=== PATIENT | male | born 1990 | race Caucasian/White ===

== ENCOUNTER 2017-12-10 14:25 | Emergency (ER) | payer OTHER ==
[2017-12-10 15:32] VITALS: BP 137/77
--- NOTE | 2017-12-10 20:35 | UC ---
Complaint Male HPI - HPI Summary HPI Summary: Pt. is a 27 y.o male who presents to the complaining of genital itching x several days. He denies dysuria or penile discharge. Pt. denies concern for STIs. He denies testicle pain or swelling. Symptoms are mild in severity. No current modifying factors. - History of Current Complaint Chief Complaint: UCGU Stated Complaint: PERSONAL Time Seen by Provider: 12/10/17 15:24 Hx Obtained From: Patient Pain Intensity: 2 Pain Scale Used: 0-10 Numeric - Allergies/Home Medications Allergies/Adverse Reactions: Allergies Allergy/AdvReac Type Severity Reaction Status Date / Time No Known Allergies Allergy Verified 12/10/17 15:32 Home Medications: Home Medications Losartan TAB* [Cozaar TAB*] 25 mg PO DAILY 12/10/17 [History Confirmed 12/10/17] PMH/Surg Hx/FS Hx/Imm Hx Previously Healthy: Yes - Social History Lives: With Family Alcohol Use: Occasionally Substance Use Type: None Smoking Status (MU): Never Smoked Tobacco Review of Systems Constitutional: Negative Genitourinary: Other - Scrotal itching Is Patient Immunocompromised?: No All Other Systems Reviewed And Are Negative: Yes Physical Exam Triage Information Reviewed: Yes Appearance: Well-Appearing - Pt. sitting on exam table in NAD. Vital Signs: Initial Vital Signs Temp 99.4 F 12/10/17 15:21 Pulse 88 12/10/17 15:21 Resp 16 12/10/17 15:21 BP 137/77 12/10/17 15:21 Pulse Ox 100 12/10/17 15:21 Vital Signs Reviewed: Yes Neck exam: Normal Male Genital Exam: Positive: Other - Very faint overlying erythema and irritation to the scrotum.. Negative: Epididymal Tenderness, Lesions, Scrotum Tenderness (R), Scrotum Tenderness (L), Urethral Discharge Musculoskeletal Exam: Normal Neurological Exam: Normal Psychological Exam: Normal Skin Exam: Normal Complaint Male Course/Dx - Course Course Of Treatment: Pt. presenting with testicular itching. Exam is realatively unremarkable. Will treat for tinea cruris. Pt. offered and declined STI testing today. Clotrimazole cream rx. Advised to keep genitals clean and dry. Close f.u with PCP and return to or go to ER if sxs change or worsen. - Differential Dx/Diagnosis Differential Diagnosis/HQI/PQRI: Epididymitis, Phimosis, Priaprism, Urinary Tract Infection Provider Diagnoses: Tinea cruris Discharge - Sign-Out/Discharge Documenting (check all that apply): Discharge/Admit/Transfer - Discharge Plan Condition: Good Disposition: HOME Prescriptions: Clotrimazole 1% CREAM* [Clotrimazole 1%*] 1 applic TOPICAL BID #120 tube Patient Education Materials: Delroy Anton (ED) Referrals: [facility] [place] [facility] [Outside] No Primary Care Phys,NOPCP [Primary Care Provider] - Additional Instructions: Call the physician referral number to establish a PCP Use cream as directed Keep genital region clean and dry Return to UC or go to ER for testicle pain, swelling, discharge, fever or if concerned - Billing Disposition and Condition Condition: GOOD Disposition: HOME
== END 2017-12-10 15:57 | disposition home or self-care (01) ==
LOC: UCCORT 14:25
DX: B35.6 Tinea cruris (principal)
CPT/HCPCS: 99202; G0463

== ENCOUNTER 2017-12-30 19:51 | Emergency (ER) | payer OTHER ==
[2017-12-30 20:56] VITALS: BP 122/67
--- NOTE | 2017-12-30 21:27 | UC ---
Complaint Male HPI - HPI Summary HPI Summary: 27 y/o male presents to the urgent care for a re-check in testicular rash. Pt reports he was seen here on 12/10/2017 at the clinic about 2 weeks ago and Dx w/ candidiasis and Rx Chlotrimazole cream. Pt states rash was getting better until he went [place] a water park and now itchiness and redness returned. Pt denies fever, penile discharge, testicular pain, Hx of STD's, SOB, chest pain, abdominal pain, N/V/D - History of Current Complaint Chief Complaint: UCRash Stated Complaint: RE-CHECK PERSONAL Time Seen by Provider: 12/30/17 21:20 Hx Obtained From: Patient Onset/Duration: Gradual Onset, Lasting Weeks - 3 weeks, Still Present, Worse Since - past week Timing: Constant Severity Initially: Mild Severity Currently: Mild Pain Intensity: 3 Pain Scale Used: 0-10 Numeric Location: Testicle - red rash in both testicles Aggravating Factor(s): Other - touch Alleviating Factor(s): Nothing Associated Signs And Symptoms: Negative: Fever, Hematuria, Dysuria, Penile Swelling, Penile Discharge - Risk Factors Testicular Torsion: Negative - Allergies/Home Medications Allergies/Adverse Reactions: Allergies Allergy/AdvReac Type Severity Reaction Status Date / Time No Known Allergies Allergy Verified 12/30/17 20:53 PMH/Surg Hx/FS Hx/Imm Hx Previously Healthy: Yes GI/ History: Renal Disease - Surgical History Surgical History: Yes Surgery Procedure, Year, and Place: kidney surgery. lymph node removal - Family History Known Family History: Positive: None - Pt denies PMHX - Social History Occupation: Employed Full-time Lives: With Family Alcohol Use: Occasionally Substance Use Type: None Smoking Status (MU): Never Smoked Tobacco Review of Systems Constitutional: Negative Skin: Rash - testicular red rash w/ itchiness Eyes: Negative ENT: Negative Respiratory: Negative Cardiovascular: Negative Gastrointestinal: Negative Genitourinary: Negative Motor: Negative Neurovascular: Negative Musculoskeletal: Negative Neurological: Negative Psychological: Negative Is Patient Immunocompromised?: No All Other Systems Reviewed And Are Negative: Yes Physical Exam - Summary Physical Exam Summary: Vital Signs Reviewed: Yes General: well appearing, well nourished thin male in no acute apparent pain distress, sitting comfortably on examining table Eye Exam: Normal Eyes: Positive: Conjunctiva Clear - PERRLA< EOMI, fundi grossly normal ENT: Positive: Normal ENT inspection, Hearing grossly normal, Pharynx normal, TMs normal Neck: Positive: Supple, Nontender, No Lymphadenopathy Respiratory: Positive: Chest non-tender, Lungs clear, Normal breath sounds, No respiratory distress Cardiovascular: Positive: RRR, No Murmur, Pulses Normal, Brisk Capillary Refill Abdomen Description: Positive: Nontender, No Organomegaly, Soft. Negative: CVA Tenderness (R), CVA Tenderness (L) Bowel Sounds: Positive: Present Musculoskeletal: Positive: Strength Intact, ROM Intact, No Edema Neurological: Positive: Alert, Muscle Tone Normal Psychological Exam: Normal Skin: Positive: B/L testicles with a mild erythematous eruption and scattered white scaling, non tender to touch, no swelling or drainage observed. Triage Information Reviewed: Yes Vital Signs: Initial Vital Signs Temp 99.8 F 12/30/17 20:49 Pulse 70 12/30/17 20:49 Resp 15 12/30/17 20:49 BP 122/67 12/30/17 20:49 Pulse Ox 100 12/30/17 20:49 Complaint Male Course/Dx - Course Course Of Treatment: 27 y/o male presents to the urgent care for a re-check in testicular rash. Pt reports he was seen here on 12/10/2017 at the clinic about 2 weeks ago and Dx w/ candidiasis and Rx Chlotrimazole cream. Pt states rash was getting better until he went to a water park and now itchiness and redness returned. Pt denies fever, penile discharge, testicular pain, Hx of STD's, SOB , chest pain, abdominal pain, N/V/D. Hx obtained. Pt w/ tinea crutis on examination. UA ordered: +1 blood. Pt w/ Hx of Kidney surgery. No B/L CVA tenderness on examination. Pt Rx Kentaconazole topical cream to alleviate symptoms and advised to wear cotton underwear and avoid humidity. Strob]ngly recommended to f/u w/ PCP for further management and blood work to check glucose level and kidney function. Pt understood and agreed w/ plan of care. - Differential Dx/Diagnosis Differential Diagnosis/HQI/PQRI: Phimosis, Priaprism, Ureteral Calculi, Urinary Tract Infection Provider Diagnoses: 1-tinea crutis Discharge - Sign-Out/Discharge Documenting (check all that apply): Discharge/Admit/Transfer - D/c home - Discharge Plan Condition: Stable Disposition: HOME Prescriptions: Ketoconazole 2 % CREAM (NF) [Nizoral 2% CREAM (NF)] 1 applic TOPICAL BID #1 tube Patient Education Materials: Skin Yeast Infection (ED) Referrals: [facility] [place] [facility] [Outside] - 3 Days Additional Instructions: 1-Please apply Ketaconazole topical cream as directed. 2-If symptoms do not improve or worsen please f/u with your PCP 3 days or return to the urgent care - Billing Disposition and Condition Condition: STABLE Disposition: Home
== END 2017-12-30 22:19 | disposition home or self-care (01) ==
LOC: UCCORT 19:51
DX: R21 Rash and other nonspecific skin eruption (principal); B35.6 Tinea cruris; N28.9 Disorder of kidney and ureter, unspecified
CPT/HCPCS: 81003; 99212; G0463